=== PATIENT | male | born 1985 | race Caucasian/White ===

== ENCOUNTER 2017-01-08 01:03 | Emergency (ER) | payer OTHER ==
[~2017-01-08] VITALS: Ht 182.9 cm; Wt 116.5 kg
[2017-01-08 01:06] VITALS: BP 130/77; PULSE 88; RESP 18; TEMP 97.5; O2SAT 97
--- NOTE | 2017-01-08 01:16 | PD ---
HPI Chief Complaint: Musculoskeletal Complaint Time Seen by Provider: 01:15 Travel History International Travel<30 days: No Contact w/Intl Traveler<30days: No Traveled to known affect area: No History of Present Illness HPI 31-year-old male presents to the emergency department by private transportation for complaint of left shoulder pain. Patient hold is left upper extremity and flexion and adduction position supporting the extremity with his right upper extremity. Patient states symptoms began after weight lifting this evening. Patient states he's injured the 4 after heavy lifting but does not recall a specific injury and did not have it evaluated by provider. Patient rates pain as severe. No report of upper extremity numbness tingling or weakness. Patient did take ibuprofen 10 PM without relief. Patient voices no other concerns or complaints. Movement worsens symptoms nothing seems to alleviate pain. PFSH Past Medical History Narrative Medical left shoulder injury Social History Tobacco Use: No Allergies-Medications (Allergen,Severity, Reaction): Coded Allergies: Septra (Verified Allergy, Severe, Swelling, 01/08/17) Reported Meds & Prescriptions Reported Meds & Active Scripts Active Percocet (Oxycodone-Acetaminophen) 5-325 mg Tab 1 Tab PO Q6H PRN Ibuprofen 800 Mg Tab 800 Mg PO Q8H PRN Narrative Medication motrin Review of Systems Except as stated in HPI: all other systems reviewed are Neg General / Constitutional: No: Fever HENT: No: Congestion, Neck Pain Cardiovascular: No: Chest Pain or Discomfort Respiratory: No: Shortness of Breath Gastrointestinal: No: Abdominal Pain Genitourinary: No: Flank Pain Musculoskeletal: Positive: Pain (left shoulder) Skin: No Rash Neurologic: No: Weakness, Paresthesia Hematologic/Lymphatic: No: Lymph Node Enlargement Physical Exam Narrative GENERAL: Well-developed well-nourished male in obvious discomfort holding his left upper extremity supporting it with his right upper extremity SKIN: Warm and dry. HEAD: Normocephalic. EYES: No scleral icterus. No injection or drainage. NECK: Supple, trachea midline. No JVD or lymphadenopathy. CARDIOVASCULAR: Regular rate and rhythm without murmurs, gallops, or rubs. RESPIRATORY: Breath sounds equal bilaterally. No accessory muscle use. GASTROINTESTINAL: Abdomen soft, non-tender, nondistended. MUSCULOSKELETAL: No cyanosis, or edema. Decreased range of motion of left upper extremity secondary to severe pain. Distally extremity is neurovascular tendon intact. BACK: Nontender without obvious deformity. No CVA tenderness. Data Data Last Documented VS Vital Signs Date Time Temp Pulse Resp B/P Pulse Ox O2 Delivery O2 Flow Rate FiO2 01/08/17 01:24 18 01/08/17 01:06 97.5 88 130/77 97 Orders Shoulder, Complete (>2vws) (01/08/17 ) Ice/Cold Pack (01/08/17 01:15) Splint Or Brace Apply/Monitor (01/08/17 01:57) Ketorolac Inj (Toradol Inj) (01/08/17 02:00) Oxycodone-Acetamin 5-325 Mg (Percocet (01/08/17 02:00) Sling Cradle Arm (01/08/17 ) MDM Medical Decision Making Medical Screen Exam Complete: Yes Emergency Medical Condition: Yes Medical Record Reviewed: Yes Interpretation(s) Last Impressions Shoulder X-Ray 01/08/17 0000 Signed Impressions: Service Date/Time: Sunday, January 08, 2017 01:19 - CONCLUSION: Unremarkable examination of the left shoulder. Oli Shepherd MD Vital Signs Date Time Temp Pulse Resp B/P Pulse Ox O2 Delivery O2 Flow Rate FiO2 01/08/17 01:24 18 01/08/17 01:06 97.5 88 18 130/77 97 Differential Diagnosis Sprain strain tendinitis acromioclavicular separation rotator cuff injury subluxation dislocation fracture Narrative Course Imaging studies ordered; ice pack applied No acute bony injury subluxation or dislocation by imaging Patient administered Toradol 60 mg IM and Percocet 5/325 one dose by mouth Sling applied Patient stable for outpatient management Diagnosis Primary Impression: Injury of left shoulder Qualified Code: S49.92XA - Injury of left shoulder, initial encounter Referrals: Orthopedist call for appointment [facility] 2 days Patient Instructions: Narcotic given in the ED, General Instructions Med/Other Pt SpecificInfo: Prescription(s) given Scripts Oxycodone-Acetaminophen (Percocet)5-325 mg Tab1 Tab PO Q6H PRN (PAIN) #6 TAB Ref 0 Prov:Lorin Cisneros MD 01/08/17 Ibuprofen 800 Mg [id number] Mg PO Q8H PRN (PAIN GREATER THAN 5) #10 TAB Ref 0 Prov:Lorin Cisneros MD 01/08/17 Disposition: 01 DISCHARGE HOME Condition: Stable Lorin Cisneros MD Jan 08, 2017 01:16
[2017-01-08 01:24] VITALS: RESP 18
--- NOTE | 2017-01-08 01:42 | RADRPT ---
EXAM DATE/TIME: 01/08/2017 01:19 [facility] COMPARISON: No previous studies available for comparison. INDICATIONS : Left shoulder pain. MEDICAL HISTORY : None. SURGICAL HISTORY : None. ENCOUNTER: Initial ACUITY: 1 day PAIN SCORE: 8/10 LOCATION: Left shoulder. FINDINGS: Multiple view examination of the left shoulder demonstrates no evidence of fracture or dislocation. The glenohumeral and acromioclavicular joints are maintained. There is normal range of motion betwee n internal and external rotation. Bony mineralization is normal. CONCLUSION: Unremarkable examination of the left shoulder. Oli Shepherd MD on January 08, 2017 at 1:41 Board Certified Radiologist. This report was verified electronically.
[2017-01-08] MEDS ORDERED: oxyCODONE/ACETAMINOPHEN 5 MG/325 MG TAB PO ONE (02:00)
[2017-01-08] MEDS ORDERED: KETOROLAC TROMETHAMINE 60 MG/2 ML (IM) VIAL IM ONE (02:00)
[2017-01-08] MEDS ORDERED: PERC5TAB12 PO (02:02)
[2017-01-08] MEDS ORDERED: IBUP800T23 PO (02:02)
== END 2017-01-08 02:29 | disposition home or self-care (01) ==
LOC: PHED 01:03
DX: S49.92XA Unspecified injury of left shoulder and upper arm, initial encounter (principal); X50.0XXA Overexertion from strenuous movement or load, initial encounter; Y93.B9 Activity, other involving muscle strengthening exercises
CPT/HCPCS: 73030; 96372; 99284; J1885

== ENCOUNTER 2018-03-08 06:17 | Observation (INO) ==
--- NOTE | 2018-03-08 07:16 | ED ---
HPI General Chief complaint: Dental/Oral Stated complaint: Swollen Tonsils Time Seen by Provider: 03/08/18 07:07 Source: patient Mode of arrival: ambulatory Limitations: no limitations History of Present Illness HPI narrative: Pt presents with tx for tonsillitis 1 wk ago. Patient woke up at 2 AM with increasing swelling in retropharyngeal area. No chills or fever. Generally good health with no significant medical problems Related Data Home Medications Medication Instructions Recorded Confirmed No Known Home Medications 03/08/18 03/08/18 Allergies Allergy/AdvReac Type Severity Reaction Status Date / Time sulfamethoxazole Allergy Severe Swelling Verified 03/08/18 06:37 trimethoprim Allergy Severe Swelling Verified 03/08/18 06:37 Review of Systems ROS: all other systems reviewed are negative [facility] Medical History Medical History A-fib (Acute) HTN (hypertension) (Acute) Pilonidal cyst (Acute) Surgical History Surgical History History of excision of pilonidal cyst (Acute) Social History Social History Substance History: No History of Abuse Second Hand Smoke Exposure: No Smoking Status: Current every day smoker Tobacco Type: Cigarettes How Often Do You Have a Drink Containing Alcohol: 2 to 4 times a month Recent Travel in [facility] within the Last 8 Weeks: No Recent Out of Country Travel within the Last 8 Weeks: No Immunization History Tetanus Immunization: <5 Years Exam Narrative Exam Narrative: GENERAL: Alert and oriented SKIN: Focused skin assessment warm/dry. HEAD: Atraumatic. Normocephalic. EYES: Pupils equal and round. No scleral icterus. No injection or drainage. ENT: No nasal bleeding or discharge. Mucous membranes pink and moist. Bilateral tonsillar enlargement and parapharyngeal swelling to midline. NECK: Trachea midline. No JVD. Tenderness left anterior cervical nodes CARDIOVASCULAR: Regular rate and rhythm. No murmur appreciated. RESPIRATORY: No accessory muscle use. Clear to auscultation. Breath sounds equal bilaterally. GASTROINTESTINAL: Abdomen soft, non-tender, nondistended. Hepatic and splenic margins not palpable. MUSCULOSKELETAL: No obvious deformities. No clubbing. No cyanosis. No edema. NEUROLOGICAL: Awake and alert. No obvious cranial nerve deficits. Motor grossly within normal limits. Normal speech. PSYCHIATRIC: Appropriate mood and affect; insight and judgment normal. Course Reevaluation(s) Reevaluation #1: Both ENT and hospitalist contacted. Patient to be treated with additional antibiotics and Decadron. No evidence of trismus Time: 08:50 Initial Documented Vital Signs Temperature 98.4 F 03/08/18 06:19 Pulse Rate 85 03/08/18 06:19 Respiratory Rate 18 03/08/18 06:19 Blood Pressure 168/86 H 03/08/18 06:19 Pulse Oximetry 98 03/08/18 06:19 Last Documented Vital Signs Temperature 99 F 03/08/18 08:34 Pulse Rate 81 03/08/18 08:34 Respiratory Rate 16 03/08/18 08:34 Blood Pressure 158/92 H 03/08/18 08:34 Pulse Oximetry 96 03/08/18 08:34 Critical Care Time Critical Care Time: Yes Total Critical Care Time: 45 Attestation: Not necessary Medical Decision Making MDM Narrative Medical decision making narrative: Patient has generalized swelling of both tonsillar pillars and tonsils. But no trismus. CT shows abscess on left side. Case discussed with hospitalist and digital community manager. ENT: Mucosa pink and moist. Erythema and swelling as above. No uvular edema. tonsillar deviation to a point where they are kissing. Airway patent. Nasal turbinates appear normal without nasal blood, purulent drainage or septal hematoma. ENT asked addition of Rocephin and clindamycin to the Unasyn given. Medical Screen Exam Complete: Yes Emergency Medical Condition: Yes Lab Data Result diagrams: 03/08/18 07:40 03/08/18 08:10 Lab Results 03/08/18 03/08/18 03/08/18 Range/Units 07:40 08:10 08:10 CBC w Diff Slide review pending WBC 26.2 H (4.0-11.0) th/mm3 RBC 4.83 (4.50-5.90) mil/mm3 Hgb 15.6 (13.0-17.0) gm/dL Hct 45.7 (39.0-51.0) % MCV 94.7 (80.0-100.0) fL MCH 32.3 (27.0-34.0) pg MCHC 34.1 (32.0-36.0) % RDW 12.8 (11.6-17.2) % Plt Count 464 H (150-450) th/mm3 MPV 7.9 (7.0-11.0) fL Neut % (Auto) 89.2 H (16.0-70.0) % Lymph % (Auto) 6.1 L (9.0-44.0) % Loup % (Auto) 2.9 (0.0-8.0) % Eos % (Auto) 0.4 (0.0-4.0) % Baso % (Auto) 1.4 (0.0-2.0) % Neut # (Auto) 23.3 H (1.8-7.7) th/mm3 Lymph # (Auto) 1.6 (1.0-4.8) th/mm3 Loup # (Auto) 0.8 (0.0-0.9) th/mm3 Eos # (Auto) 0.1 (0.0-0.4) th/mm3 Baso # (Auto) 0.4 H (0.0-0.2) th/mm3 WBC Differential Manual diff final Seg Neuts % (Manual) 89 H (16-70) % Band Neuts % (Manual) 1 (0-6) % Lymphocytes % (Manual) 7 L (9-44) % Monocytes % (Manual) 3 (0-8) % Abs Neuts (Manual) 23.6 H (1.8-7.7) th/mm3 Differential Comment . Platelet Estimate High H (Normal) Platelet Morphology Normal (Normal) Sodium 135 L (136-145) meq/L Potassium 4.6 (3.5-5.1) meq/L Chloride 104 (98-107) meq/L Carbon Dioxide 24.2 (21.0-32.0) meq/L Anion Gap 7 (5-15) meq/L BUN 15 (7-18) mg/dL Creatinine 1.00 (0.60-1.30) mg/dL Estimated GFR 87 L (>89) mL/min Random Glucose 112 H (74-106) mg/dL Lactic Acid 1.5 (0.4-2.0) mmol/L Calcium 8.8 (8.5-10.1) mg/dL Total Bilirubin 0.4 (0.2-1.0) mg/dL AST 20 (15-37) U/L ALT 69 (12-78) U/L Alkaline Phosphatase 71 (45-117) U/L Total Protein 8.2 (6.4-8.2) g/dL Albumin 3.9 (3.4-5.0) g/dL Imaging Data Radiologist's impression: Soft Tissue Neck CT 03/08/18 07:16 CONCLUSION: 1. Enlarged tonsil with a tonsillar abscess measuring 2.47 m on the left. 2. Bilateral adenopathy the more prominent on the left. Discharge Plan Discharge Disposition Patient Disposition: 30 Still Patient Physicians Team ED Provider: Christopher Draper Primary Care Provider: [facility]ician 's Attending Provider: Bull Sandoval Interventions Interventions: Vital Signs Last Done: 03/08/18 08:05 Status ED Status: Admitted Patient
[2018-03-08 07:46] LABS: Baso # (Auto) 0.4 th/mm3 (0.0-0.2); Baso % (Auto) 1.4 % (0.0-2.0); Eos # (Auto) 0.1 th/mm3 (0.0-0.4); Eos % (Auto) 0.4 % (0.0-4.0); Hematocrit 45.7 % (39.0-51.0); Hemoglobin 15.6 gm/dL (13.0-17.0); Lymph # (Auto) 1.6 th/mm3 (1.0-4.8); Lymph % (Auto) 6.1 % (9.0-44.0); Mean Corpuscular HGB Conc 34.1 % (32.0-36.0); Mean Corpuscular Hemoglobin 32.3 pg (27.0-34.0); Mean Corpuscular Volume 94.7 fL (80.0-100.0); Mean Platelet Volume 7.9 fL (7.0-11.0); Mono # (Auto) 0.8 th/mm3 (0.0-0.9); Mono % (Auto) 2.9 % (0.0-8.0); Neut # (Auto) 23.3 th/mm3 (1.8-7.7); Neut % (Auto) 89.2 % (16.0-70.0); Platelet Count 464 th/mm3 (150-450); Red Blood Count 4.83 mil/mm3 (4.50-5.90); Red Cell Distribution Width 12.8 % (11.6-17.2); White Blood Count 26.2 th/mm3 (4.0-11.0)
[2018-03-08] MEDS ORDERED: Ampicillin/Sulbactam Inj 3 GM in Sodium Chloride 0.9% Inj 100 ML IV.SIG ONE (08:08)
--- NOTE | 2018-03-08 08:13 | CT ---
EXAM DATE: 03/08/2018 7:26 AM EDT AGE/SEX: 33 years / Male INDICATIONS: Tonsillitis 1 week CLINICAL DATA: This is the patient's initial encounter. Patient reports that signs and symptoms have been present for 1 week and indicates a pain score of 5/10. MEDICAL/SURGICAL HISTORY: Hypertension. Atrial fib, pilonidal cyst None. RADIATION DOSE: 14.44 CTDI (mGy) COMPARISON: . TECHNIQUE: Helical acquisition was performed using a multirow detector CT scanner during the adminis tration of 70ML ml Omnipaque 350 (iohexol) nonionic water-soluble contrast as a single exam dose. U sing automated exposure control and adjustment of the mA and/or kV according to patient size, radiati on dose was kept as low as reasonably achievable to obtain optimal diagnostic quality images. DICOM format image data is available electronically for review and comparison. FINDINGS: Nasopharynx: The nasopharyngeal airway has a normal configuration. No mucosal thickening or mass is seen. Oropharynx: There is enlargement of the tonsils bilaterally being asymmetric and worse in the left. There is a fluid collection within the left tonsil measuring 2.4 cm in greatest diameter. Larynx: The supraglottic, glottic, and infraglottic structures are intact. Parapharyngeal: Enlarged lymph nodes are seen in the parapharyngeal spaces being more prominent on t he left. Salivary Glands: The parotid and submandibular glands are intact. Lymph Nodes: There is enlarged lymph node seen in the parapharyngeal spaces and adjacent to the ster nocleidomastoid muscles bilaterally being more prominent on the left. These lymph nodes measure up to 1.9 cm in greatest dimension. Thyroid: Homogeneous enhancement without evidence of nodule. Bones: Unremarkable. Other: There is focal mucosal disease at the axillary sinuses being more prominent on the left.. CONCLUSION: 1. Enlarged tonsil with a tonsillar abscess measuring 2.47 m on the left. 2. Bilateral adenopathy the more prominent on the left. Electronically signed by: Omid Palomo MD 03/08/2018 8:12 AM EDT
[2018-03-08] MEDS ORDERED: Sod Chloride 0.9% Inj 1,000 ML IV.SIG SCH (08:15)
[2018-03-08 08:18] LABS: Lymphocytes 7 % (9-44); Monocytes 3 % (0-8); Platelet Morphology Normal (Normal)
[2018-03-08] MEDS ORDERED: Dexamethasone Inj 20 MG/5 ML Vial IV.PUSH ONE (08:30)
[2018-03-08] MEDS ORDERED: Clindamycin 900 mg/NS Premix 900 MG/50 ML PIGGYBACK IV.SIG SCH (08:30)
[2018-03-08] MEDS ORDERED: Bisacodyl 10 MG Supp RECTAL PRN (08:31)
[2018-03-08 08:34] LABS: Chloride 104 meq/L (98-107); Potassium 4.6 meq/L (3.5-5.1); Sodium 135 meq/L (136-145)
[2018-03-08 08:38] LABS: Albumin 3.9 g/dL (3.4-5.0); Anion Gap 7 meq/L (5-15); Calcium 8.8 mg/dL (8.5-10.1); Carbon Dioxide 24.2 meq/L (21.0-32.0); Glucose,Random 112 mg/dL (74-106)
[2018-03-08 08:39] LABS: Blood Urea Nitrogen 15 mg/dL (7-18)
[2018-03-08 08:41] LABS: Alanine Aminotransferase 69 U/L (12-78); Aspartate Aminotransferase 20 U/L (15-37)
[2018-03-08 08:42] LABS: Glomerular Filtration Rate 87 mL/min (>89)
[2018-03-08 08:43] LABS: Total Protein 8.2 g/dL (6.4-8.2)
[2018-03-08 08:44] LABS: Alkaline Phosphatase 71 U/L (45-117)
[2018-03-08] MEDS: Sod Chloride 0.9% Inj 1,000 ML IV.CONT SCH ×2 (08:47→17:59)
[2018-03-08 10:05] LABS: Mono Screen Neg (Neg)
[2018-03-08] MEDS: Clindamycin 900 mg/NS Premix 900 MG/50 ML PIGGYBACK IV.SIG SCH ×2 (10:23→18:00)
--- NOTE | 2018-03-08 11:45 | P.HP ---
History of Present Illness Primary Care Physician: Physician [facility] Chief Complaint: Failed outpatient treatment for tonsillitis History of Present Illness: Is a pleasant 33-year-old male patient with no known medical history presented to the ED with complaints of worsening throat swelling and discomfort. Patient states he has been on Augmentin, finished his anabiotic today for outpatient treatment of tonsillitis. She was also on prednisone at home. He states he was doing relatively well over the course of the week, went to bed in his normal state of health and woke up today around 2 AM with swelling and worsening discomfort in his neck and tonsils. Patient denies any fevers at home. He denies any headache, chest pain, abdominal pain, nausea, vomiting, diarrhea or dysuria. Patient does admit to finishing his antibiotics completely. Upon presentation today patient's white blood cells are 20,000 and although this can be abnormally elevated secondary to steroids at home. A CT of the soft tissue in the neck was performed showing a possible abscess. Dr. Solis, ENT has been consulted and seen patient. Evaluation this morning. Recommendations for antibiotics of Rocephin and clindamycin as well as IV Decadron overnight. Will reassess in the morning, possible discharge in a.m. versus need for surgery. At the time of assessment patient is lying in bed comfortably no apparent distress. He states his pain is well controlled. Denies any difficulty breathing or swallowing. Vital signs are stable. - Diagnosis (1) Tonsillitis (2) Failure of outpatient treatment Inpatient Certification: I certify that the inpatient services were ordered in accordance with Medicare regulations governing the order. This includes certification that hospital inpatient services are reasonable and necessary and in the case of services not specified as inpatient-only under 42 CFR 419.22(n), that they are appropriately provided as inpatient services in accordance to with the 2-midnight benchmark under 43 CFR 412.3(e) Review of Systems All other systems reviewed negative except as stated in HPI PMFSH - History History Provided By: Patient, Significant Other - Medical History Medical History: Medical History (Last Reviewed 03/08/18 @ 08:49 by Christopher Draper MD) A-fib HTN (hypertension) Pilonidal cyst - Surgical History Surgical History: Surgical History (Last Reviewed 03/08/18 @ 08:49 by Christopher Draper MD) History of excision of pilonidal cyst - Family History Family History: Family History (Last Updated 03/08/18 @ 11:47 by Vaishali Guzman) Other Family history in first degree relatives is unremarkable - Tobacco History Second Hand Smoke Exposure: No Tobacco Use In Past 30 Days: Yes Smoking Status: Former smoker Tobacco Type: Cigarettes - Alcohol History How Often Do You Have a Drink Containing Alcohol: 2 to 3 times a week - Substance Use History Substance History: No History of Abuse - Travel History Recent Travel in the [place] Within the Last 8 Weeks: No Recent Travel Out of the Country Within the Last 8 Weeks: No - Immunization History Tetanus Immunization: <5 Years Medications and Allergies Active Medications: Active Medications Al Hydroxide/Mg Hydroxide (Milk Of Magnesia Liq) 30 ml PO Q12H PRN PRN Reason: Mild Constipation Bisacodyl (Dulcolax Supp) 10 mg RECTAL DAILY PRN PRN Reason: SEVERE CONSITIPATION Dexamethasone Sodium Phosphate (Decadron Inj) 4 mg IV.PUSH Q12HR ZACK Sodium Chloride (Ns Inj) 1,000 mls @ 0 mls/hr IV.SIG BOLUS ZACK Sodium Chloride (Ns Inj) 1,000 mls @ 100 mls/hr IV.CONT .Q10H ZACK Last Admin: 03/08/18 08:47 Dose: 100 mls/hr Clindamycin/Sodium Chloride (Cleocin 900 Mg/Ns Premix) 900 mg in 50 mls @ 100 mls/hr IV.SIG NOW ZACK Stop: 03/10/18 08:59 Clindamycin/Sodium Chloride (Cleocin 900 Mg/Ns Premix) 900 mg in 50 mls @ 100 mls/hr IV.SIG Q8H ZACK Last Infusion: 03/08/18 10:58 Dose: Infused Ceftriaxone Sodium 1,000 mg/ (Sodium Chloride) 100 mls @ 200 mls/hr IV.SIG Q12H ZACK Lactulose (Lactulose Liq) 30 ml PO DAILY PRN PRN Reason: SEVERE CONSITIPATION Ondansetron HCl (Zofran Inj) 4 mg IV.PUSH Q6H PRN PRN Reason: NAUSEA OR VOMITING Sennosides (Senokot) 17.2 mg PO Q12H PRN PRN Reason: Moderate Constipation Allergies Allergy/AdvReac Type Severity Reaction Status Date / Time sulfamethoxazole Allergy Severe Swelling Verified 03/08/18 06:37 trimethoprim Allergy Severe Swelling Verified 03/08/18 06:37 Home Medications Medication Instructions Recorded Confirmed Type No Known Home Medications 03/08/18 03/08/18 History Exam Vital signs: Vital Signs 03/08/18 06:19 03/08/18 08:05 03/08/18 08:34 Temperature 98.4 F 99 F 99 F Pulse Rate 85 81 Respiratory Rate 18 16 16 Blood Pressure 168/86 H 158/92 H Pulse Oximetry 98 98 96 03/08/18 09:31 Temperature Pulse Rate 98 H Respiratory Rate 16 Blood Pressure 140/84 Pulse Oximetry 97 Intake & Output 03/07/18 03/08/18 03/08/18 18:59 06:59 18:59 Intake Total 250 / 250 Balance 250 / 250 Weight 117.4 kg 115.7 kg Intake: IV 250 / 250 Unasyn Inj 3 GM In NS Inj 100 100 / 100 ML @ 200 mls/hr IV.SIG ONCE ONE Rx#:[id number] Cleocin 900 mg/NS Premix 900 mg 50 / 50 In 50 ml @ 100 mls/hr IV.SIG Q8H ZACK Rx#:[id number] Rocephin Inj 2,000 MG In NS Inj 100 / 100 100 ML @ 200 mls/hr IV.SIG ONCE ONE Rx#:[id number] Other: Weight On Admission 115.7 kg Narrative: GENERAL: Well-developed, well-nourished patient in [facility]. SKIN: Warm and dry. No rash. HEAD: Normocephalic. Atraumatic. EYES: Pupils equal and round. No scleral icterus. No injection or drainage. ENT: No nasal bleeding or discharge. Bilateral tonsillar enlargement and parapharyngeal swelling to midline. No stridor noted. No trismus noted. No drooling. NECK: Supple. Trachea midline. CARDIOVASCULAR: Regular rate and rhythm. S1, S2 noted. No murmur appreciated. RESPIRATORY: No accessory muscle use. Clear to auscultation. Breath sounds equal bilaterally. GASTROINTESTINAL: Abdomen soft, non-tender, nondistended. Normoactive bowel sounds x4. MUSCULOSKELETAL: No obvious deformities. Extremities without clubbing, cyanosis , or edema. NEUROLOGICAL: Awake and alert. No obvious cranial nerve deficits. Motor grossly within normal limits. 5/5 muscle strength in bilateral upper and lower extremities. Normal speech. PSYCHIATRIC: Appropriate mood and affect; insight and judgment normal. Results - Labs CBC & Chem 7: 03/08/18 07:40 03/08/18 08:10 Labs: Laboratory Results - last 24 hr 03/08/18 03/08/18 03/08/18 07:40 07:40 08:10 CBC w Diff Slide review pending WBC 26.2 H RBC 4.83 Hgb 15.6 Hct 45.7 MCV 94.7 MCH 32.3 MCHC 34.1 RDW 12.8 Plt Count 464 H MPV 7.9 Neut % (Auto) 89.2 H Lymph % (Auto) 6.1 L [place] % (Auto) 2.9 Eos % (Auto) 0.4 Baso % (Auto) 1.4 Neut # (Auto) 23.3 H Lymph # (Auto) 1.6 [place] # (Auto) 0.8 Eos # (Auto) 0.1 Baso # (Auto) 0.4 H WBC Differential Manual diff final Seg Neuts % (Manual) 89 H Band Neuts % (Manual) 1 Lymphocytes % (Manual) 7 L Monocytes % (Manual) 3 Abs Neuts (Manual) 23.6 H Differential Comment . Platelet Estimate High H Platelet Morphology Normal Sodium 135 L Potassium 4.6 Chloride 104 Carbon Dioxide 24.2 Anion Gap 7 BUN 15 Creatinine 1.00 Estimated GFR 87 L Random Glucose 112 H Lactic Acid Calcium 8.8 Total Bilirubin 0.4 AST 20 ALT 69 Alkaline Phosphatase 71 Total Protein 8.2 Albumin 3.9 Monoscreen Neg 03/08/18 08:10 CBC w Diff WBC RBC Hgb Hct MCV MCH MCHC RDW Plt Count MPV Neut % (Auto) Lymph % (Auto) [place] % (Auto) Eos % (Auto) Baso % (Auto) Neut # (Auto) Lymph # (Auto) [place] # (Auto) Eos # (Auto) Baso # (Auto) WBC Differential Seg Neuts % (Manual) Band Neuts % (Manual) Lymphocytes % (Manual) Monocytes % (Manual) Abs Neuts (Manual) Differential Comment Platelet Estimate Platelet Morphology Sodium Potassium Chloride Carbon Dioxide Anion Gap BUN Creatinine Estimated GFR Random Glucose Lactic Acid 1.5 Calcium Total Bilirubin AST ALT Alkaline Phosphatase Total Protein Albumin Monoscreen - Imaging Impressions Soft Tissue Neck CT 03/08/18 07:16 CONCLUSION: 1. Enlarged tonsil with a tonsillar abscess measuring 2.47 m on the left. 2. Bilateral adenopathy the more prominent on the left. Caprini VTE Risk Assessment Caprini VTE Risk Assessment: No/Low Risk (score <= 1) Caprini Risk Assessment Model: Point Value = 1 Point Value = 2 Point Value = 3 Point Value = 5 Age 41-60 Minor surgery BMI > 25 kg/m2 Swollen legs Varicose veins or History of unexplained or recurrent spontaneous Oral contraceptives or hormone replacement Sepsis (< 1 month) Serious lung disease, including pneumonia (< 1 month) Abnormal pulmonary function Acute myocardial infarction Congestive heart failure (< 1 month) History of inflammatory bowel disease Medical patient at bed rest Age 61-74 Arthroscopic surgery Major open surgery (> 45 min) Laparoscopic surgery (> 45 min) Malignancy Confined to bed (> 72 hours) Immobilizing plaster cast Central venous access Age >= 75 History of VTE Family history of VTE Factor V Leiden Prothrombin [id number] Lupus anticoagulant Anticardiolipin antibodies Elevated serum homocysteine Heparin-induced thrombocytopenia Other congenital or acquired thrombophilia Stroke (< 1 month) Elective arthroplasty Hip, pelvis, or leg fracture Acute spinal cord injury (< 1 month) Prophylaxis Regimen: Total Risk Factor Score Risk Level Prophylaxis Regimen 0-1 Low Early ambulation 2 Moderate Order ONE of the following: *Sequential Compression Device (SCD) *Heparin 5000 units SQ BID 3-4 Higher Order ONE of the following medications: *Heparin 5000 units SQ TID *Enoxaparin/Lovenox 40 mg SQ daily (WT < 150 kg, CrCl > 30 mL/min) *Enoxaparin/Lovenox 30 mg SQ daily (WT < 150 kg, CrCl > 10-29 mL/min) *Enoxaparin/Lovenox 30 mg SQ BID (WT < 150 kg, CrCl > 30 mL/min) AND/OR *Sequential Compression Device (SCD) 5 or more Highest Order ONE of the following medications: *Heparin 5000 units SQ TID (Preferred with Epidurals) *Enoxaparin/Lovenox 40 mg SQ daily (WT < 150 kg, CrCl > 30 mL/min) *Enoxaparin/Lovenox 30 mg SQ daily (WT < 150 kg, CrCl > 10-29 mL/min) *Enoxaparin/Lovenox 30 mg SQ BID (WT < 150 kg, CrCl > 30 mL/min) AND *Sequential Compression Device (SCD) Assessment and Plan - Assessment (1) Tonsillitis Code(s): J03.90 - Acute tonsillitis, unspecified Status: Acute (2) Failure of outpatient treatment Code(s): Z78.9 - Other specified health status Status: Acute - Plan Is a 33-year-old male patient with Tonsillitis Failed outpatient treatment with Augmentin and prednisone -Patient states that his swelling and discomfort worsened this morning after completing his dose of Augmentin. -Patient presented with leukocytosis, white blood cell in the 20,000. This may be secondarily increased due to his recent steroid use. He does have a left shift. Will continue to monitor CBC. Afebrile for now. -CT of the soft tissue of the neck was done in the ED showing possibility of abscess. -ENT, Dr. Solis has been consulted and has seen patient, appreciate input and recommendations. -Will continue IV fluids, IV antibiotics and IV Decadron. -Will assess overnight and may be able to discharge home versus need for surgical removal of tonsils. -[place] screen has been sent. Will follow. -Blood cultures are also pending. Follow. -Continue IV clindamycin IV Rocephin BID. -Decadron IV scheduled. Monitor for any difficulty breathing or respiratory distress. Monitor for any stridor or inability to swallow or choking. -Further hospitalization and treatment plan will depend on clinical improvement. -Patient is stable at this time and agreeable to the plan. Tobacco abuse: Encouraged cessation. History of hypertension: Patient does not take anything at home for this. Will monitor blood pressure trends. May need to be started on an antihypertensive. Questionable history of atrial fibrillation. Patient is unaware of any history of a fib and has not been placed on any medications or anticoagulation. DVT prophylaxis: SCDs. Ambulation.
--- NOTE | 2018-03-08 12:12 | MB ---
cc: Gabe Solis MD, Timothy DATE: 03/08/2018 REQUESTED BY: Christopher Draper MD, ER physician. REASON FOR ENT CONSULTATION: Left peritonsillar abscess. HISTORY OF PRESENT ILLNESS: Cirilo Calzada is a 33-year-old man in good health. He states he woke at 2 a.m. this morning with severe pain in the left side of his throat. This caused difficulty with swallowing. He presented to the emergency room for evaluation. He was found to have bilateral hypertrophy of tonsils without exudate. CT scan revealed possible abscess in the left peritonsillar area. The patient reports he does not usually get sore throats. He is having difficulty with swallowing. No airway compromise. PAST MEDICAL HISTORY: Includes atrial fibrillation for which he is not treated. He also has hypertension. 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 No history of tobacco, alcohol, or drugs. PHYSICAL EXAMINATION: GENERAL: He is alert and cooperative. VITAL SIGNS: Temperature 98.4, respirations 18, pulse 85. Pulse oximetry 98% on room air. BP 158/92. HEENT: Head is normocephalic. Face is normal. Oral cavity: Teeth in good condition. Tongue and mandible normal. There is bilateral symmetrical hypertrophy of tonsils, moderate degree of edema and erythema in the left soft palate and superior pole of tonsil fossa. Palpation of this area reveals tenderness, but no fluctuance. Oropharynx is patent. There are no nodes or masses. Larynx and trachea midline. Normal salivary and thyroid glands. Ears: Normal auricles, ear canals, and tympanic membranes. Nose is patent bilaterally. LABORATORY DATA: White count 26,000. ASSESSMENT: Left peritonsillar cellulitis. PLAN: Discussed with the patient. He has already received clindamycin and Rocephin as well as 10 mg of Decadron. He states he is feeling improvement already. Still having some difficulty with swallowing. I discussed his case with his admitting staff. Recommend continue IV antibiotic treatment for another 24 hours and reevaluate. Anticipate he will be much improved by that time and will not need surgery during this admission. I will follow with him in-house. He can begin a liquid diet now and resume n.p.o. at midnight tonight. MD SIA Louis/preet , 11:38 AM , 11:44 AM
[2018-03-08] MEDS ORDERED: Morphine Sulfate Inj 2 MG/ML Vial IV.PUSH PRN (15:11)
[2018-03-09] MEDS: Clindamycin 900 mg/NS Premix 900 MG/50 ML PIGGYBACK IV.SIG SCH ×2 (03:49→11:31)
[2018-03-09] MEDS: Sod Chloride 0.9% Inj 1,000 ML IV.CONT SCH ×2 (04:43→06:20)
[2018-03-09 08:15] LABS: Baso % (Auto) 0.1 % (0.0-2.0); Eos # (Auto) 0.1 th/mm3 (0.0-0.4); Eos % (Auto) 0.4 % (0.0-4.0); Hematocrit 40.9 % (39.0-51.0); Hemoglobin 13.7 gm/dL (13.0-17.0); Lymph # (Auto) 1.6 th/mm3 (1.0-4.8); Lymph % (Auto) 7.6 % (9.0-44.0); Mean Corpuscular HGB Conc 33.6 % (32.0-36.0); Mean Corpuscular Hemoglobin 32.3 pg (27.0-34.0); Mean Corpuscular Volume 96.2 fL (80.0-100.0); Mean Platelet Volume 8.1 fL (7.0-11.0); Mono # (Auto) 0.5 th/mm3 (0.0-0.9); Mono % (Auto) 2.6 % (0.0-8.0); Neut # (Auto) 18.4 th/mm3 (1.8-7.7); Neut % (Auto) 89.3 % (16.0-70.0); Platelet Count 381 th/mm3 (150-450); Red Blood Count 4.25 mil/mm3 (4.50-5.90); Red Cell Distribution Width 12.3 % (11.6-17.2); White Blood Count 20.6 th/mm3 (4.0-11.0)
[2018-03-09 08:23] LABS: Chloride 108 meq/L (98-107); Potassium 4.2 meq/L (3.5-5.1); Sodium 140 meq/L (136-145)
[2018-03-09 08:28] LABS: Anion Gap 10 meq/L (5-15); Calcium 8.6 mg/dL (8.5-10.1); Carbon Dioxide 22.1 meq/L (21.0-32.0)
[2018-03-09 08:29] LABS: Blood Urea Nitrogen 9 mg/dL (7-18); Glucose,Random 128 mg/dL (74-106)
[2018-03-09 08:32] LABS: Glomerular Filtration Rate Greater Than 89 mL/min (>89)
--- NOTE | 2018-03-09 08:44 | P.PNIM ---
Subjective Interval history: Follow-up outpatient failed antibiotic therapy for tonsillitis. Patient seen and examined, lying in bed comfortably no apparent distress. Patient states that his pain is improved. Mild swelling continued in the left jaw and cervical lymph node swelling. Patient is not having any difficulty swallowing. Has been tolerating p.o. intake well. Advance diet to full liquids. Awaiting ENT this morning. Physical Exam Vital signs: Vital Signs 03/08/18 09:31 03/08/18 12:00 03/08/18 16:00 Temperature 99.0 F 97.2 F L Pulse Rate 98 H 93 H 84 Respiratory Rate 16 17 17 Blood Pressure 140/84 152/83 H 139/87 Pulse Oximetry 97 97 96 03/08/18 20:00 03/09/18 00:00 Temperature 97.9 F 97.2 F L Pulse Rate 105 H 87 Respiratory Rate 20 20 Blood Pressure 143/68 H 141/74 H Pulse Oximetry 96 96 Intake & Output 03/08/18 03/09/18 03/09/18 18:59 06:59 18:59 Intake Total 2260 / 2260 1462 / 1462 Balance 2260 / 2260 1462 / 1462 Weight 115.7 kg 115.8 kg Intake: IV 1300 / 1300 1462 / 1462 NS Inj 1,000 ML @ 100 mls/hr IV 1000 / 1000 1212 / 1212 .CONT .Q10H ZACK Rx#:[id number] Unasyn Inj 3 GM In NS Inj 100 100 / 100 ML @ 200 mls/hr IV.SIG ONCE ONE Rx#:[id number] Cleocin 900 mg/NS Premix 900 mg 100 / 100 50 / 50 In 50 ml @ 100 mls/hr IV.SIG Q8H ZACK Rx#:[id number] Rocephin Inj 1,000 MG In NS Inj 200 / 200 100 ML @ 200 mls/hr IV.SIG Q12H ZACK Rx#:[id number] Rocephin Inj 2,000 MG In NS Inj 100 / 100 100 ML @ 200 mls/hr IV.SIG ONCE ONE Rx#:[id number] Oral 960 / 960 0 / 0 Other: # Voids 4 2 # Bowel Movements 0 Weight On Admission 115.7 kg Narrative: GENERAL: Well-developed, well-nourished patient in [place]. SKIN: Warm and dry. No rash. HEAD: Normocephalic. Atraumatic. EYES: Pupils equal and round. No scleral icterus. No injection or drainage. ENT: No nasal bleeding or discharge. Bilateral tonsillar enlargement and parapharyngeal swelling to midline. No stridor noted. No trismus noted. No drooling. NECK: Supple. Trachea midline. CARDIOVASCULAR: Regular rate and rhythm. S1, S2 noted. No murmur appreciated. RESPIRATORY: No accessory muscle use. Clear to auscultation. Breath sounds equal bilaterally. GASTROINTESTINAL: Abdomen soft, non-tender, nondistended. Normoactive bowel sounds x4. MUSCULOSKELETAL: No obvious deformities. Extremities without clubbing, cyanosis , or edema. NEUROLOGICAL: Awake and alert. No obvious cranial nerve deficits. Motor grossly within normal limits. 5/5 muscle strength in bilateral upper and lower extremities. Normal speech. PSYCHIATRIC: Appropriate mood and affect; insight and judgment normal. Results - Labs CBC & Chem 7: 03/09/18 07:47 03/09/18 07:47 Laboratory Results - last 24 hr 03/08/18 03/08/18 03/08/18 07:40 08:10 08:10 CBC w Diff WBC RBC Hgb Hct MCV MCH MCHC RDW Plt Count MPV Neut % (Auto) Lymph % (Auto) [place] % (Auto) Eos % (Auto) Baso % (Auto) Neut # (Auto) Lymph # (Auto) [place] # (Auto) Eos # (Auto) Baso # (Auto) WBC Differential Differential Comment Sodium Potassium Chloride Carbon Dioxide Anion Gap BUN Creatinine Estimated GFR Random Glucose Lactic Acid 1.5 Calcium Alkaline Phosphatase 71 Monoscreen Neg 03/09/18 03/09/18 07:47 07:47 CBC w Diff Auto diff final WBC 20.6 H RBC 4.25 L Hgb 13.7 Hct 40.9 MCV 96.2 MCH 32.3 MCHC 33.6 RDW 12.3 Plt Count 381 MPV 8.1 Neut % (Auto) 89.3 H Lymph % (Auto) 7.6 L [place] % (Auto) 2.6 Eos % (Auto) 0.4 Baso % (Auto) 0.1 Neut # (Auto) 18.4 H Lymph # (Auto) 1.6 [place] # (Auto) 0.5 Eos # (Auto) 0.1 Baso # (Auto) 0.0 WBC Differential . Differential Comment . Sodium 140 Potassium 4.2 Chloride 108 H Carbon Dioxide 22.1 Anion Gap 10 BUN 9 Creatinine 0.76 Estimated GFR Greater than 89 Random Glucose 128 H Lactic Acid Calcium 8.6 Alkaline Phosphatase Monoscreen Assessment and Plan - Assessment (1) Tonsillitis Code(s): J03.90 - Acute tonsillitis, unspecified Status: Acute (2) Failure of outpatient treatment Code(s): Z78.9 - Other specified health status Status: Acute - Plan Is a 33-year-old male patient with Tonsillitis Failed outpatient treatment with Augmentin and prednisone -Patient states that his swelling and discomfort worsened this morning after completing his dose of Augmentin. -Patient presented with leukocytosis, white blood cell in the 20,000. This may be secondarily increased due to his recent steroid use. He does have a left shift. Afebrile for overnight. -CT of the soft tissue of the neck was done in the ED showing possibility of abscess. -ENT, Dr. Solis has been consulted and has seen patient, appreciate input and recommendations. We will reassess patient this morning to determine plan. -Will continue IV fluids, IV antibiotics and IV Decadron. -[place] screen is negative. -Blood cultures negative to date. Follow. -Continue IV clindamycin IV Rocephin BID. -Decadron IV scheduled. Monitor for any difficulty breathing or respiratory distress. Monitor for any stridor or inability to swallow or choking. -Further hospitalization and treatment plan will depend on clinical improvement and further ENT recommendations. -Patient is stable at this time and agreeable to the plan. Tobacco abuse: Encouraged cessation. History of hypertension: Patient does not take anything at home for this. Will monitor blood pressure trends. . Questionable history of atrial fibrillation. Patient is unaware of any history of a fib and has not been placed on any medications or anticoagulation. DVT prophylaxis: SCDs. Ambulation. Discharge Planning: Awaiting for ENT final recs.
[2018-03-09 08:54] VITALS: BP 141/63; PULSE 81; RESP 18; TEMP 97.6; O2SAT 97
== END 2018-03-09 12:46 | disposition home or self-care (01) ==
LOC: PHED 06:17 → INTOOBSV 08:52 → PHEDA 08:52 → PH3 09:58
PROVIDERS: ADMIT Internal Medicine; ATTEND Internal Medicine